=== PATIENT | male | born 1980 | race Caucasian/White ===

== ENCOUNTER 2022-01-19 12:55 | Emergency (ER) | payer SELFPAY ==
[2022-01-19] MEDS ORDERED: Fluorescein Opthalmic Strip ONE (13:47)
[2022-01-19] MEDS ORDERED: Tetracaine 0.5% PF 4 ML BOT ONE (13:47)
== END 2022-01-19 14:22 | disposition home or self-care (01) ==
LOC: MADERS 12:55
DX: H16.133 Photokeratitis, bilateral (principal); F17.210 Nicotine dependence, cigarettes, uncomplicated
CPT/HCPCS: 99283